=== PATIENT | female | born 1950 | race African-American/Black ===

== ENCOUNTER 2020-01-29 18:01 | Inpatient (IN) | payer BC, OTHER ==
[2020-01-29 20:01] VITALS: BMI 24.8
--- NOTE | 2020-01-29 20:52 | BHS.RME ---
Substance Use & Tx History - Substance Use History Cocaine- Powder Substance amount: $20 Frequency of use: Daily Substance route: Inhalation (ex: sniffing or snorting) Date of Last Use: 01/28/20 Heroin Substance amount: 2-5 bags Frequency of use: Daily Substance route: Inhalation (ex: sniffing or snorting) Date of Last Use: 01/29/20 - Last Treatment Date of last treatment: 30 years Where was last treatment: [facility] ([facility]) Physical/Psych/Mental Status - Behavior General Behavior: Increased activity (restlessness, agitation) - Cooperativeness Cooperativeness: Cooperative - Thinking Thought Processes: Tight, Logical - Physical Health Problems Is patient presently having any pain?: Yes (abdominal cramps) Does patient presently have any injuries (include location): No Does patient currently have a fever: No Is patient : No COWS - Scale Resting Pulse: 1= [place] 81-100 Sweatin= Chills/Flushing Restless Observation: 1= Difficult to Sit Still Pupil Size: 0= Normal to Room Light Bone or Joint Aches: 2= Severe Diffuse Aches Runny Nose/ Eye Tearin= None GI Upset > 30mins: 1= Stomach Cramp Tremor Observation: 1= Tremor [place], Not Seen Yawning Observation: 0= None Anxiety or Irritability: 2=Irritable/Anxious Goose Flesh Skin: 0=Smooth Skin COWS Score: 9
--- NOTE | 2020-01-29 21:04 | HP ---
COWS - Scale Resting Pulse: 1= [place] 81-100 Sweatin= Chills/Flushing Restless Observation: 1= Difficult to Sit Still Pupil Size: 0= Normal to Room Light Bone or Joint Aches: 2= Severe Diffuse Aches Runny Nose/ Eye Tearin= None GI Upset > 30mins: 1= Stomach Cramp Tremor Observation: 1= Tremor [place], Not Seen Yawning Observation: 0= None Anxiety or Irritability: 2=Irritable/Anxious Goose Flesh Skin: 0=Smooth Skin COWS Score: 9 CIWA Score - Admission Criteria [facility]ASAS Guidelines: Admission for Medically Managed Detox: Requires at least one of the followin. CIWA greater than 12 2. Seizures within the past 24 hours 3. Delirium tremens within the past 24 hours 4. Hallucinations within the past 24 hours 5. Acute intervention needed for co occurring medical disorder 6. Acute intervention needed for co occurring psychiatric disorder 7. Severe withdrawal that cannot be handled at a lower level of care (continued vomiting, continued diarrhea, abnormal vital signs) requiring intravenous medication and/or fluids 8. Patient presents the following: Acute intervention needed for co-occurring med or psych disorder (COWS score of 9), None of the above Admission Criteria Met: Admission criteria met Admitting History and Physical - Primary Care Physician PCP: Janelle Randhawa. - Admission Chief Complaint: I need help to stop using. History Source: Patient Limitations to Obtaining History: No Limitations - Past Medical History Cardiovascular: Yes: HTN Pulmonary: Yes: Asthma Gastrointestinal: Yes: Constipation Hepatobiliary: Yes: Hepatitis C Renal/: Yes: Renal Inusuff ...: No Heme/Onc: Yes: Anemia Psych: Yes: Depression Endocrine: Yes: Diabetes Mellitus - Past Surgical History Past Surgical History: Yes: None - Smoking History Smoking history: Former smoker Have you smoked in the past 12 months: No - Alcohol/Substance Use Hx Alcohol Use: No History of Substance Use: reports: Cocaine, Heroin Date of Last Use: 01/29/20 - Social History Usual Living Arrangement: Yes: Alone Do you think of yourself as: Straight/Heterosexual ADL: Independent History of Recent Travel: No Admission ROS [facility] - HPI Chief Complaint: Patient is 69 y/o female with past medical history of DM, HTN, heroin and cocaine use disorder.First time in [facility] for heroin use disorder. Was sober for 30 years until 4 months ago when significant other . Allergies/Adverse Reactions: Allergies Allergy/AdvReac Type Severity Reaction Status Date / Time No Known Allergies Allergy Verified 01/29/20 22:00 History of Present Illness: Patient is 69 y/o female with past medical history of DM, HTN, heroin and cocaine use disorder.First time in [facility] for herion use disorder. Was sober for 30 years until 4 months ago when she lost her significant other. Exam Limitations: No Limitations - Ebola screening Have you traveled outside of the country in the last 21 days: No Have you had contact with anyone from an Ebola affected area: No Have you been sick,other than usual withdrawal symptoms: No Do you have a fever: No - Review of Systems Constitutional: Chills, Night Sweats, Unexplained wgt Loss (loss about 20-25 in 2 months) EENT: reports: Blurred Vision (wears prescription glasses.), Recent change in vision Respiratory: reports: No Symptoms reported Cardiac: reports: No Symptoms Reported GI: reports: Constipated (last BM was today but was constipated x 1 week.) : reports: No Symptoms Reported Musculoskeletal: reports: No Symptoms Reported Integumentary: reports: No Symptoms Reported Neuro: reports: No Symptoms reported Endocrine: reports: No Symptoms Reported Hematology: reports: Anemia Psychiatric: reports: No Sypmtoms Reported, Judgement Intact, Orientated x3, Anxious Other Systems: Reviewed and Negative Patient History - Patient Medical History Hx Anemia: Yes (takes iron pills) Hx Asthma: No Hx Chronic Obstructive Pulmonary Disease (COPD): No Hx Cancer: No Hx Cardiac Disorders: No Hx Congestive Heart Failure: No Hx Hypertension: Yes Hx Hypercholesterolemia: No Hx Pacemaker: No HX Cerebrovascular Accident: No Hx Seizures: No Hx Dementia: No Hx Diabetes: Yes Hx Gastrointestinal Disorders: No Hx Liver Disease: No Hx Genitourinary Disorders: No Hx Sexually Transmitted Disorders: No - Patient Surgical History Hx Neurologic Surgery: No Hx Cataract Extraction: No Hx Cardiac Surgery: No Hx Lung Surgery: No Hx Breast Surgery: No Hx Breast Biopsy: No Hx Abdominal Surgery: No Hx Appendectomy: No Hx Cholecystectomy: No Hx Genitourinary Surgery: No Hx Section: No Hx Orthopedic Surgery: No Hx Hysterectomy: No Anesthesia Reaction: No - PPD History Previous Implant?: Yes Documented Results: Positive w/o proof Implanted On Prior [facility] Admission?: No Results: positive PPD PPD to be Administered?: No - Reproductive History Patient : No - Smoking Cessation Smoking history: Former smoker Have you smoked in the past 12 months: No Initiated information on smoking cessation: No - Substance & Tx. History Hx Alcohol Use: No Hx Substance Use: Yes Substance Use Type: Cocaine, Heroin Hx Substance Use Treatment: Yes (Was on methadone for herion use disorder 30 years ago) - Substances abused Cocaine Substance route: Inhalation Frequency: Daily Amount used: $ 20 Age of first use: 14 Date of last use: 01/28/20 Heroin Substance route: Inhalation Frequency: Daily Amount used: 2-5 bags Age of first use: 14 Date of last use: 01/29/20 Admission Physical Exam [facility] - Vital Signs Vital Signs: Vital Signs - 24 hr 01/29/20 20:00 Temperature 97.2 F L Pulse Rate 76 Respiratory 18 Rate Blood Pressure 156/76 - Physical General Appearance: Yes: Within Normal Limits, Appropriately Dressed HEENTM: Yes: Within Normal Limits Respiratory: Yes: Within Normal Limits Neck: Yes: Within Normal Limits, No masses,lesions,Nodules, Trachea in good position Breast: Yes: Breast Exam Deferred Cardiology: Yes: Within Normal Limits, Regular Rhythm, Regular Rate, S1, S2 Abdominal: Yes: Within Normal Limits, Non Tender, Soft Genitourinary: Yes: Within Normal Limits Back: Yes: Within Normal Limits Musculoskeletal: Yes: Within Normal Limits, full range of Motion, Gait Steady Extremities: Yes: Within Normal Limits, Normal Capillary Refill Neurological: Yes: Within Normal Limits Integumentary: Yes: Within Normal Limits, Dry Lymphatic: Yes: Within Normal Limits - Diagnostic (1) Opioid dependence with withdrawal Status: Acute Cleared for Admission [facility] - Detox or Rehab [facility] Level of Care: Medically Managed Detox Regimen/Protocol: Methadone Claeared for Rehab Admission: No Screened but not Admitted - Documentation of Visit Screened but not Admitted: No Breathalyzer - Breathalyzer Breathalyzer: 0 Urine Drug Screen - Test Device Lot number: [id number] Expiration date: 12/24/21 - Control Is test valid?: No - Results Drug screen NEGATIVE: No Urine drug screen results: JOSE-Cocaine, FEN-Fentanyl, MOP-Opiates, MTD-Methadone Inpatient Rehab Admission - Rehab Decision to Admit Inpatient rehab admission?: No
[2020-01-29] MEDS ORDERED: MAGNESIUM CITRATE 300 ML BOTTLE PO PRN (21:36)
[2020-01-29] MEDS ORDERED: MAG HYDROX/AL HYDROX/SIMETH 30 ML UNIT-DOSE CUP PO PRN (21:36)
[2020-01-29] MEDS ORDERED: ONDANSETRON *ODT* 4 MG TABLET SL PRN (21:36)
[2020-01-29] MEDS ORDERED: hydrOXYzine PAMOATE 25 MG CAPSULE (FP) PO PRN (21:36)
[2020-01-29] MEDS ORDERED: ACETAMINOPHEN 325 MG TABLET (FP) PO PRN ×2 (21:36)
[2020-01-29] MEDS ORDERED: IBUPROFEN 400 MG TABLET (FP) PO PRN (21:36)
[2020-01-29] MEDS ORDERED: MAGNESIUM HYDROX 2400MG/30ML ORAL SUSPENSION 30 ML CUP PO PRN (21:36)
[2020-01-29] MEDS ORDERED: cloNIDine HCL 0.1 MG TABLET PO PRN (21:36)
[2020-01-29] MEDS ORDERED: MENTHOL/PHENOL 1 EACH UD MM PRN (21:36)
[2020-01-29] MEDS ORDERED: NALOXONE HCL 0.4 MG/ML VIAL IM PRN (21:36)
[2020-01-29] MEDS ORDERED: BISMUTH SUBSALICYLATE 524 MG/30 ML UD PO PRN (21:36)
[2020-01-29] MEDS ORDERED: METHOCARBAMOL 500 MG TABLET PO PRN (21:36)
[2020-01-29] MEDS ORDERED: MELATONIN 5 MG TABLETS PO SCH (22:00)
[2020-01-29] MEDS ORDERED: THIAMINE HCL 100 MG TABLET (FP) PO SCH (22:00)
[2020-01-29] MEDS ORDERED: METHADONE (DETOX) 10 MG, METHADONE (DETOX) 5 MG PO ONE (22:30)
[2020-01-29] MEDS ORDERED: METHADONE HCL 10 MG TABLET (FOR DETOX USE ONLY) ONE (22:40)
[2020-01-29] MEDS ORDERED: METHADONE HCL 5 MG TABLET (FOR DETOX USE ONLY) ONE (22:40)
[2020-01-30 09:21] VITALS: BP 138/74; PULSE 75; TEMP 97.1
[2020-01-30] MEDS ORDERED: PRENATAL VITAMINS W/ FOLIC ACID TABLET (FP) PO SCH (10:00)
[2020-01-30] MEDS ORDERED: METHADONE HCL 10 MG TABLET (FOR DETOX USE ONLY) PO ONE (10:00)
[2020-01-30 10:29] LABS: HEMATOCRIT 31.3 % (32.4-45.2); HEMOGLOBIN 9.9 GM/dL (10.7-15.3); MCH 26.2 pg (25.7-33.7); MCHC 31.6 g/dl (32.0-36.0); MEAN CELL VOLUME 82.8 fl (80-96); MEAN PLT VOLUME 8.4 fl (7.5-11.1); PLATELET COUNT 287 K/MM3 (134-434); RBC 3.78 M/mm3 (3.60-5.2); RDW 15.1 % (11.6-15.6); WHITE BLOOD COUNT 6.4 K/mm3 (4.0-10.0)
[2020-01-30 10:40] LABS: ALBUMIN 2.9 g/dl (3.4-5.0); BILIRUBIN,TOTAL 0.4 mg/dL (0.2-1); BLOOD UREA NITROGEN 17.4 mg/dL (7-18); CALCIUM 8.4 mg/dL (8.5-10.1); CREATININE 1.1 mg/dL (0.55-1.3); POTASSIUM 4.2 mmol/L (3.5-5.1); TOT PROT 6.9 g/dl (6.4-8.2)
--- NOTE | 2020-01-30 11:12 | PN ---
[facility] Progress Note Note: pt states " I have things to do". pt refused to elaborate her reasons. Pt was reminded her reason for being in detox and the risks of relapse, seizures, DT, OD and or loss, pt chose to sign out. Pt was also reminded how she was placed on a minimal taper and perhaps was not sufficient for her withdrawals, however pt was given the opportunity to have her doses increased but pt refused and was very adamant about leaving. pt chose to sign out AMA.
--- NOTE | 2020-01-30 11:20 | DS ---
[facility] Detox Discharge Summary Admission Date: 01/29/20 - History Present History: Opioid Dependence - Physical Exam Results Vital Signs: Vital Signs Temperature 97.1 F L 01/30/20 08:31 Pulse Rate 75 01/30/20 08:31 Respiratory Rate 16 01/30/20 08:31 Blood Pressure 138/74 01/30/20 08:31 O2 Sat by Pulse Oximetry (%) 96 01/30/20 05:45 Pertinent Admission Physical Exam Findings: Vital Signs Temperature 97.1 F L 01/30/20 08:31 Pulse Rate 75 01/30/20 08:31 Respiratory Rate 16 01/30/20 08:31 Blood Pressure 138/74 01/30/20 08:31 O2 Sat by Pulse Oximetry (%) 96 01/30/20 05:45 Laboratory Tests 01/29/20 01/29/20 01/30/20 19:35 22:47 06:54 WBC RBC Hgb Hct MCV MCH MCHC RDW Plt Count MPV Sodium Potassium Chloride Carbon Dioxide Anion Gap BUN Creatinine Est GFR (CKD-EPI)AfAm Est GFR (CKD-EPI)NonAf POC Glucometer 324 116 Random Glucose Calcium Total Bilirubin AST ALT Alkaline Phosphatase Total Protein Albumin POC Urine HCG, Qual Negative 01/30/20 01/30/20 07:50 07:50 WBC 6.4 RBC 3.78 Hgb 9.9 L Hct 31.3 L MCV 82.8 MCH 26.2 MCHC 31.6 L RDW 15.1 Plt Count 287 MPV 8.4 Sodium 142 Potassium 4.2 Chloride 108 H Carbon Dioxide 30 Anion Gap 3 L BUN 17.4 Creatinine 1.1 Est GFR (CKD-EPI)AfAm 58.91 Est GFR (CKD-EPI)NonAf 50.83 POC Glucometer Random Glucose 145 H Calcium 8.4 L Total Bilirubin 0.4 AST 17 ALT 21 Alkaline Phosphatase 54 Total Protein 6.9 Albumin 2.9 L POC Urine HCG, Qual labs noted aaox3 ambulating no acute distress - Treatment Hospital Course: Rehab Referral Accepted - Medication Discharge Medications: Ambulatory Orders Amlodipine Besylate 10 mg PO DAILY #30 tablet 01/29/20 Calcitriol [Calcitriol -] 0.25 mcg PO DAILY #30 capsule 01/29/20 Cholecalciferol (Vitamin D3) [Vitamin D3] 50 mcg PO DAILY #30 tablet 01/29/20 Ferrous Sulfate 325 mg PO DAILY #30 tablet 01/29/20 Insulin Glargine,Hum.rec.anlog [Lantus (nf)] 20 units SQ HS #1 vial 01/29/20 Metoprolol Succinate 25 mg PO DAILY #30 tab.er.24h 01/29/20 - Diagnosis (1) Opioid dependence with withdrawal Current Visit: Yes Status: Chronic - AMA Did Patient Leave Against Medical Advice: Yes
--- NOTE | 2020-01-30 13:32 | EKG ---
Test Reason : Blood Pressure : / mmHG Vent. Rate : 070 BPM Atrial Rate : 070 BPM P-R Int : 148 ms QRS Dur : 084 ms QT Int : 392 ms P-R-T Axes : 060 054 051 degrees QTc Int : 423 ms POOR DATA QUALITY, INTERPRETATION MAY BE ADVERSELY AFFECTED NORMAL SINUS RHYTHM NORMAL ECG Confirmed by MD EMIR, LEANN ([id number]) on 01/30/2020 1:31:57 PM Referred By: Confirmed By:LEANN FIELD MD
[2020-01-31] MEDS ORDERED: METHADONE HCL 5 MG TABLET (FOR DETOX USE ONLY) PO ONE (06:00)
== END 2020-01-30 11:45 | disposition left against medical advice (07) | DRG 894 ==
LOC: YASAS 18:01 → Y6N 20:59
PROVIDERS: ADMIT Allergy & Immunology; ATTEND Allergy & Immunology
PROC: HZ2ZZZZ Detoxification Services for Substance Abuse Treatment (ICD-10-PCS; principal; 2020-01-29)
DX: F11.23 Opioid dependence with withdrawal (principal); F14.20 Cocaine dependence, uncomplicated; F32.9 Major depressive disorder, single episode, unspecified; F17.211 Nicotine dependence, cigarettes, in remission; D64.9 Anemia, unspecified; I10 Essential (primary) hypertension; J45.909 Unspecified asthma, uncomplicated; E11.9 Type 2 diabetes mellitus without complications; Z79.4 Long term (current) use of insulin; N28.9 Disorder of kidney and ureter, unspecified
CPT/HCPCS: 36415; 80053; 81025; 82962; 85027; 86780; 93005; 93010; U0003